=== PATIENT | male | born 1985 | race Caucasian/White ===

== ENCOUNTER 2016-09-28 20:02 | Emergency (ER) | payer MEDICAID ==
--- NOTE | 2016-09-28 20:36 | EDPHY ---
H & P Stated Complaint: l le pain concerned with blood clot Time Seen by Provider: 09/28/16 20:28 HPI/ROS: CHIEF COMPLAINT: Left popliteal fossa pain concerns about DVT HISTORY OF PRESENT ILLNESS: 31-year-old male a prior history of DVT and PE, currently not on any anticoagulants complaining of left popliteal fossa pain since 6:30 p.m. this evening. No paresthesia. No trauma. No discoloration. No chest pain. No dyspnea. PRIMARY CARE PROVIDER: Dr. Vivienne Gilman REVIEW OF SYSTEMS: A ten point review of systems was performed and is negative with the exception of the items mentioned in the HPI PAST MEDICAL & SURGICAL HISTORY: DVT PE history. Trans gender SOCIAL HISTORY:nonsmoker PHYSICAL EXAM (Prior to examination, patient consented to physical exam, hands were washed and my usual and customary physical exam procedures followed) 1) GENERAL: Well-developed, well-nourished, alert and oriented. Appears to be in no acute distress. 2) HEAD: Normocephalic 3) HEENT: Sclera anicteric. 4) NECK: Full range of motion, no meningeal signs. 5) LUNGS: Clear auscultation bilaterally, no wheezes, no rhonchi, no retractions. 6) HEART: Regular rate and rhythm, no murmur, no heave, no gallop. 7) ABDOMEN: No guarding, no rebound, no focal tenderness, 8) MUSCULOSKELETAL: negative Homans no palpable cord. Soft compartments. No visible asymmetry. No popliteal fossa pain. Distal DP PT pulses present and brisk bilaterally brisk capillary refill normal color normal , warm temperature 9) BACK: no visual or palpable abnormality. 10) SKIN: No rash, no petechiae. 11) Psychiatric: Patient is oriented X 3, there is no agitation. DIFFERENTIAL DIAGNOSIS: [ in no particular order including but not limited to DVT, Leyva cyst, compartment syndrome - Personal History Current Tetanus/Diphtheria Vaccine: Yes Current Tetanus Diphtheria and Acellular Pertussis (TDAP): Yes Tetanus Vaccine Date: 2013 - Medical/Surgical History Hx Asthma: Yes Hx Chronic Respiratory Disease: No Hx Diabetes: No Hx Cardiac Disease: No Hx Renal Disease: No Hx Cirrhosis: No Hx Alcoholism: No Hx HIV/AIDS: No Hx Splenectomy or Spleen Trauma: No Other PMH: EXCERCISE-INDUCED ASTHMA/HERNIA REPAIRS transgender surg. with hormone replacement SEASONAL ALLERGIES, CAT& DOG, ALLERGIES, DVT, PE- SADDLE CLOT, ivc filter removed - Social History Smoking Status: Never smoked Constitutional: Initial Vital Signs Temperature (C) 36.3 C 09/28/16 20:13 Heart Rate 78 09/28/16 20:13 Respiratory Rate 18 09/28/16 20:13 Blood Pressure 111/86 H 09/28/16 20:13 O2 Sat (%) 96 09/28/16 20:13 O2 Delivery Mode Room Air Allergies/Adverse Reactions: Sulfa (Sulfonamide Antibiotics) Allergy (Intermediate, Verified 11/16/15 23:51) TARGET LESION amoxicillin trihydrate [From Augmentin] Allergy (Verified 11/16/15 23:51) potassium clavulanate [From Augmentin] Allergy (Verified 11/16/15 23:51) IV contrast Allergy (Uncoded 11/16/15 23:51) Home Medications: Medication Instructions Recorded Propranolol HCl [Inderal 20mg (*)] 20 mg PO 0500,1200,199905/04/15 Estradiol Transdermal Patch 08/21/15 Bentyl 10 MG (*) 09/28/16 Medical Decision Making - Diagnostics Imaging Results: Imaging Impressions Extremity Venous Study 09/28/16 20:29 Impression: No deep venous thrombosis left leg. Results called to Buddy Ellison PA-C, at 9:30 PM. Images reviewed by myself ED Course/Re-evaluation: Patient was re-evaluated with serial examinations. Discussed the negative ultrasound results showing no evidence of DVT, no evidence of Leyva cyst. The patient has excellent full range of motion of the left knee with soft compartments. Doubt compartment syndrome. Doubt septic arthritis. I do not think that further diagnostic studies are indicated from the emergency department. Recommend follow up with primary care provider in 1-2 days. Departure - Departure Disposition: Home, Routine, Self-Care Clinical Impression: Leg pain, left Condition: Good Instructions: Leg Cramps (ED) Additional Instructions: Return to the emergency department if you develop new or worsening symptoms, discoloration or any other symptoms that concern you Referrals: Vivienne Gilman MD [Primary Care Provider] - 1-2 days without fail
[2016-09-28 21:55] VITALS: BP 127/92; PULSE 83; RESP 20; TEMP 97.9; O2SAT 94
== END 2016-09-28 21:56 | disposition home or self-care (01) ==
DX: M79.605 Pain in left leg (principal); J45.909 Unspecified asthma, uncomplicated